=== PATIENT | male | born 1960 | race Two or more races ===

== ENCOUNTER 2022-08-08 03:19 | Inpatient (IN) | payer MEDICAID, OTHER ==
[~2022-08-08] VITALS: Ht 165.1 cm; Wt 67.6 kg
[2022-08-08 03:22] VITALS: BP 214/129
[2022-08-08] MEDS ORDERED: NITROGLYCERIN 0.4 MG SL TAB SL ONE ×2 (03:45→10:00)
[2022-08-08] MEDS ORDERED: ASPirin 81 mg TAB PO ONE (03:45)
[2022-08-08 04:23] LABS: Basophils # (auto) 0 10 ^3/uL (0-0.2); Basophils % (auto) 0.6 % (0.0-2.0); Eosinophils # (auto) 0.2 10 ^3/uL (0-0.8); Eosinophils % (auto) 3.3 % (0.0-7.0); Hematocrit 43.8 % (41.0-53.0); Hemoglobin 14.3 g/dL (13.5-17.5); Lymphocytes # (auto) 1.4 10 ^3/uL (0.4-5.4); Lymphocytes % (auto) 18.5 % (10.0-50.0); Mean Corpuscular Hemoglobin 28.6 pg (28.0-32.0); Mean Corpuscular Hgb Conc. 32.7 g/dL (32.0-36.0); Mean Corpuscular Volume 87.4 fL (80.0-100.0); Monocytes # (auto) 0.5 10 ^3/uL (0-1.3); Monocytes % (auto) 6.8 % (0.0-12.0); Neutrophils # (auto) 5.4 10 ^3/uL (1.6-8.6); Neutrophils % (auto) 70.8 % (37.0-80.0); Red Blood Cells 5.01 10^6/uL (4.5-5.90); Red Cell Distribution Width 15.1 % (11.8-14.3); White Blood Cell 7.6 10^3/uL (4.4-10.8)
[2022-08-08 04:35] VITALS: BP 173/106
[2022-08-08 04:35] LABS: INR 1.01 (0.9-1.15); Partial Thromboplastin Time 24.5 sec (24.6-33.4)
[2022-08-08 04:38] LABS: Albumin 3.5 g/dL (3.4-5.0); Anion Gap 13 (5-15); BUN/Creatinine Ratio 17.9; Blood Alcohol < 3.0 mg/dL (0-5); Blood Urea Nitrogen 21 mg/dL (7-18); Calcium 8.4 mg/dL (8.5-10.1); Carbon Dioxide 20 mmol/L (21-32); Chloride 112 mmol/L (98-107); GFR African American 82 mL/min; GFR Non-African American 68 mL/min; Glucose 173 mg/dL (74-106); Potassium 3.6 mmol/L (3.5-5.1); Sodium 145 mmol/L (136-145)
[2022-08-08 04:41] LABS: Alanine Aminotransferase 93 U/L (16-61); Alkaline Phosphatase 133 U/L (45-117); Aspartate Aminotransferase 128 U/L (15-37); Bilirubin, Total 0.8 mg/dL (0.2-1.0); Total Protein 6.9 g/dL (6.4-8.2)
[2022-08-08] MEDS ORDERED: cloNIDine HCL 0.1 MG TAB PO ONE (04:45)
[2022-08-08] MEDS ORDERED: levoFLOXacin 500MG 100 ML IV ONE (04:45)
[2022-08-08] MEDS ORDERED: FUROSEMIDE 40 MG/4 ML VIAL IV ONE (04:45)
[2022-08-08] MEDS ORDERED: ACETAMINOPHEN 325 MG TAB PO PRN (11:00)
[2022-08-08] MEDS ORDERED: HYDROcodone-ACET 5/325MG TAB PO PRN (11:00)
[2022-08-08] MEDS ORDERED: MORPHINE SULFATE INJ 2 MG/ml SYRG IV PRN ×2 (11:00)
[2022-08-08] MEDS ORDERED: NITROGLYCERIN 0.4 MG SL TAB SL PRN (11:00)
[2022-08-08] MEDS ORDERED: FUROSEMIDE 20 MG/2 ML VIAL IV ONE (11:45)
[2022-08-08] MEDS ORDERED: AZITHROMYCIN 500MG/ 250ML 250 ML IV ONE (11:45)
[2022-08-08] MEDS ORDERED: cefTRIAXone 1GM/50ML D5W 50 ML IV ONE (11:45)
[2022-08-08] MEDS ORDERED: IPRATROPIUM BROM 0.5 MG/2.5ML INH SOL NEB PRN (11:45)
[2022-08-08] MEDS ORDERED: PANTOPRAZOLE 40 MG/10 ML VIAL INJ IV ONE (11:45)
[2022-08-08] MEDS ORDERED: ALBUTEROL SULF 2.5 MG/0.5ML(0.5%) NEB SOLN NEB PRN (11:45)
[2022-08-08] MEDS ORDERED: hydrALAZINE HCL 20 MG/ML VL IV PRN (11:45)
[2022-08-08] MEDS: IPRATROPIUM BROM 0.5 MG/2.5ML INH SOL NEB SCH ×2 (12:00→18:48)
[2022-08-08] MEDS ORDERED: NITROGLYCERIN 0.4MG/HR TOPICAL PATCH TD ONE (12:00)
[2022-08-08] MEDS: ALBUTEROL SULF 2.5 MG/0.5ML(0.5%) NEB SOLN NEB SCH ×2 (12:00→18:47)
[2022-08-08] MEDS ORDERED: ENOXAPARIN SOD 100 MG/1 ML SYRINGE SC ONE (12:00)
[2022-08-08 12:14] LABS: Alcohol, Urine < 3.0 mg/dL (0-10); Amphetamine Screen, Urine POSITIVE (NEGATIVE); Barbiturate Scree,Urine NEGATIVE (NEGATIVE); Benzodiazephine Screen, Urine NEGATIVE (NEGATIVE); Cannabinoid Screen, Urine NEGATIVE (NEGATIVE); Cocaine Screen, Urine NEGATIVE (NEGATIVE); Opiate Scree,Urine NEGATIVE (NEGATIVE); Phencyclidine Screen, Urine NEGATIVE (NEGATIVE)
[2022-08-08] MEDS ORDERED: ENOXAPARIN SOD 80 MG/0.8ML SYRINGE SC ONE (12:15)
[2022-08-08 12:29] LABS: Cholesterol 149 mg/dL (< 200); HDL Cholesterol 53 mg/dL (40-59); LDL Cholesterol 97 mg/dL (< 100); Triglycerides 73 mg/dL (< 150)
[2022-08-08] MEDS ORDERED: ONDANSETRON HCL 4 MG/2 ML VIAL ONE (15:34)
[2022-08-08] MEDS ORDERED: ONDANSETRON HCL 4 MG/2 ML VIAL IV PRN (16:15)
[2022-08-08 19:51] VITALS: BP 142/83
[2022-08-08 21:43] LABS: Urine Bacteria NONE SEEN /hpf (None Seen); Urine Blood 2+ /uL (Negative); Urine Specific Gravity 1.014 (1.001-1.035); Urine WBC 3 /hpf (0 - 3)
[2022-08-08] MEDS ORDERED: SACUBITRIL-VALSARTAN 24mg/26mg TAB PO SCH (22:00)
[2022-08-08] MEDS ORDERED: HEPARIN SODIUM (PORCINE) 5000 UNITS/ML 1ML VIAL SC SCH (22:00)
[2022-08-08] MEDS: ATORVASTATIN 20 MG TAB PO SCH (22:48)
[2022-08-08] MEDS: ENOXAPARIN SOD 80 MG/0.8ML SYRINGE SC SCH (22:48)
[2022-08-08] MEDS: CARVEDILOL 12.5 MG TAB PO SCH (22:48)
[2022-08-09] MEDS: IPRATROPIUM BROM 0.5 MG/2.5ML INH SOL NEB SCH ×3 (05:32→18:15)
[2022-08-09] MEDS: ALBUTEROL SULF 2.5 MG/0.5ML(0.5%) NEB SOLN NEB SCH ×3 (05:32→18:15)
[2022-08-09 06:23] LABS: Basophils # (auto) 0 10 ^3/uL (0-0.2); Basophils % (auto) 0.5 % (0.0-2.0); Eosinophils # (auto) 0.3 10 ^3/uL (0-0.8); Eosinophils % (auto) 2.6 % (0.0-7.0); Hematocrit 41.1 % (41.0-53.0); Hemoglobin 13.6 g/dL (13.5-17.5); Lymphocytes # (auto) 1.8 10 ^3/uL (0.4-5.4); Lymphocytes % (auto) 17.2 % (10.0-50.0); Mean Corpuscular Hemoglobin 28.4 pg (28.0-32.0); Mean Corpuscular Hgb Conc. 33.1 g/dL (32.0-36.0); Mean Corpuscular Volume 85.6 fL (80.0-100.0); Monocytes # (auto) 0.9 10 ^3/uL (0-1.3); Monocytes % (auto) 8.8 % (0.0-12.0); Neutrophils # (auto) 7.3 10 ^3/uL (1.6-8.6); Neutrophils % (auto) 70.9 % (37.0-80.0); Nucleated Red Blood Cells % 0.1 %; Red Cell Distribution Width 14.8 % (11.8-14.3); White Blood Cell 10.3 10^3/uL (4.4-10.8)
[2022-08-09 07:11] LABS: Albumin 2.9 g/dL (3.4-5.0); BUN/Creatinine Ratio 18.3; Bilirubin, Total 0.9 mg/dL (0.2-1.0); Calcium 8.2 mg/dL (8.5-10.1); Potassium 3.7 mmol/L (3.5-5.1); Total Protein 6.2 g/dL (6.4-8.2)
[2022-08-09] MEDS ORDERED: cefTRIAXone 1GM/50ML D5W 50 ML IV SCH (09:00)
[2022-08-09] MEDS ORDERED: PANTOPRAZOLE 40 MG/10 ML VIAL INJ IV SCH (10:00)
[2022-08-09] MEDS ORDERED: AZITHROMYCIN 500MG/ 250ML 250 ML IV SCH (10:00)
[2022-08-09] MEDS: SACUBITRIL-VALSARTAN 24mg/26mg TAB PO SCH ×2 (10:08→22:12)
[2022-08-09] MEDS: FUROSEMIDE 20 MG/2 ML VIAL IV SCH (10:09)
[2022-08-09] MEDS: NICOTINE 14 MG/24HR TOPICAL PATCH TD SCH (10:09)
[2022-08-09] MEDS: ENOXAPARIN SOD 80 MG/0.8ML SYRINGE SC SCH (10:09)
[2022-08-09] MEDS: ASPirin 81 mg TAB PO SCH (10:10)
[2022-08-09] MEDS: CARVEDILOL 12.5 MG TAB PO SCH ×2 (10:10→22:13)
[2022-08-09 16:49] VITALS: BP 133/89
[2022-08-09] MEDS ORDERED: TAMSULOSIN HYDROCHLORIDE 0.4 MG CAP PO SCH (18:00)
[2022-08-09 22:00] VITALS: BP 125/73
[2022-08-09] MEDS: ATORVASTATIN 20 MG TAB PO SCH (22:12)
[2022-08-09] MEDS: APIXABAN 2.5 MG TAB PO SCH (22:13)
[2022-08-10 05:00] VITALS: BP 131/80
[2022-08-10] MEDS: IPRATROPIUM BROM 0.5 MG/2.5ML INH SOL NEB SCH ×2 (07:01→13:43)
[2022-08-10] MEDS: ALBUTEROL SULF 2.5 MG/0.5ML(0.5%) NEB SOLN NEB SCH ×2 (07:01→13:43)
[2022-08-10 07:11] LABS: BUN/Creatinine Ratio 22.7; Calcium 8.3 mg/dL (8.5-10.1); Potassium 3.7 mmol/L (3.5-5.1)
[2022-08-10 09:00] VITALS: BP 148/90
[2022-08-10] MEDS: SACUBITRIL-VALSARTAN 24mg/26mg TAB PO SCH (09:40)
[2022-08-10] MEDS: ASPirin 81 mg TAB PO SCH (09:40)
[2022-08-10] MEDS: CARVEDILOL 12.5 MG TAB PO SCH (09:41)
[2022-08-10] MEDS: APIXABAN 2.5 MG TAB PO SCH (09:41)
[2022-08-10] MEDS: FUROSEMIDE 20 MG/2 ML VIAL IV SCH (09:41)
[2022-08-10] MEDS: NICOTINE 14 MG/24HR TOPICAL PATCH TD SCH (09:42)
[2022-08-10 13:00] VITALS: BP 134/80
[2022-08-10 15:21] LABS: Hepatitis A Ab IgM Negative; Hepatitis B Core IgM Negative
[2022-08-10 15:24] LABS: Hepatitis C Antibody Positive (Negative)
[2022-08-10] MEDS ORDERED: CAR125T PO (15:37)
[2022-08-10] MEDS ORDERED: ASPI-325 PO (15:37)
[2022-08-10] MEDS ORDERED: ATOR20TA50 PO (15:37)
[2022-08-10] MEDS ORDERED: TAM04C PO (15:38)
[2022-08-10] MEDS ORDERED: SACU1TAB PO (15:38)
[2022-08-10] MEDS ORDERED: FURO40TA4 PO (15:41)
[2022-08-10 16:58] VITALS: BP 140/78
== END 2022-08-10 17:20 | disposition home or self-care (01) | DRG 194 ==
LOC: ER 03:19 → EDBD 03:19 → TELE 11:11 → TELE-CENTR 08-09 16:03
PROVIDERS: ADMIT Registered Nurse; ATTEND Hospitalist
PROC: 5A09357 Assistance with Respiratory Ventilation, Less than 24 Consecutive Hours, Continuous Positive Airway Pressure (ICD-10-PCS; principal; 2022-08-08)
DX: I11.0 Hypertensive heart disease with heart failure (principal); J96.01 Acute respiratory failure with hypoxia; I50.23 Acute on chronic systolic (congestive) heart failure; I24.9 Acute ischemic heart disease, unspecified; I42.9 Cardiomyopathy, unspecified; I44.7 Left bundle-branch block, unspecified; I34.0 Nonrheumatic mitral (valve) insufficiency; Z20.822 Contact with and (suspected) exposure to COVID-19; B19.20 Unspecified viral hepatitis C without hepatic coma; F15.10 Other stimulant abuse, uncomplicated; F17.210 Nicotine dependence, cigarettes, uncomplicated; Z91.199 Patient's noncompliance with other medical treatment and regimen due to unspecified reason
CPT/HCPCS: 36415; 36600; 71045; 76705; 80048; 80053; 80061; 80074; 80307; 80320; 81001; 82805; 83036; 83880; 84443; 84484; 85025; 85379; 85610; 85730; 87040; 87070; 87077; 87186; 87205; 87426; 93005; 93306; 93970; 94640; 96365; 96375; 97163; 99291; C9113; G0378; J0696; J1956; J2405